=== PATIENT | female | born 1950 | race Hispanic/Latino ===

== ENCOUNTER → 2017-07-16 | Outpatient (CLI) | payer OTHER, MEDICARE ==
[~2017-07-16] MED LIST: ASPI-1181 PO; BUSP15TA3 PO; CALC-1038 PO; CHOL200013 PO; DIPH25 PO; GABA-529 PO; LEVO100T12 PO; METO25 PO; TYL3 PO
== END | disposition home or self-care (01) ==
LOC: SHCH 15:28
PROVIDERS: ATTEND Internal Medicine Cardiovascular Disease
DX: I35.0 Nonrheumatic aortic (valve) stenosis (principal); Z95.2 Presence of prosthetic heart valve
CPT/HCPCS: 93306

== ENCOUNTER → 2017-11-16 | Outpatient (CLI) | payer OTHER, MEDICARE | END | disposition home or self-care (01) | LOC: RAH 12:35 | PROVIDERS: ATTEND Internal Medicine | DX: R51 Headache (principal); R42 Dizziness and giddiness | CPT/HCPCS: 70450 ==

== ENCOUNTER → 2018-01-11 | Outpatient (CLI) | payer OTHER, MEDICARE | END | disposition home or self-care (01) | LOC: RAH 09:28 | PROVIDERS: ATTEND Internal Medicine | DX: Z12.31 Encounter for screening mammogram for malignant neoplasm of breast (principal) | CPT/HCPCS: 77067 ==

== ENCOUNTER → 2018-02-04 | Outpatient (CLI) | payer OTHER, MEDICARE | END | disposition home or self-care (01) | LOC: RAH 11:51 | PROVIDERS: ATTEND Internal Medicine | DX: E04.1 Nontoxic single thyroid nodule (principal); F41.9 Anxiety disorder, unspecified | CPT/HCPCS: 76536; 93880 ==

== ENCOUNTER → 2018-04-10 | Outpatient (CLI) | payer OTHER, MEDICARE | END | disposition home or self-care (01) | LOC: RAH 16:03 | PROVIDERS: ATTEND Internal Medicine | DX: M25.552 Pain in left hip (principal); M25.562 Pain in left knee | CPT/HCPCS: 73502; 73562 ==

== ENCOUNTER → 2018-05-15 | Outpatient (CLI) | payer OTHER, MEDICARE | END | disposition home or self-care (01) | LOC: RAH 13:19 | PROVIDERS: ATTEND Internal Medicine | DX: R05 Cough (principal); M85.88 Other specified disorders of bone density and structure, other site | CPT/HCPCS: 71046 ==

== ENCOUNTER → 2018-06-11 | Outpatient (CLI) | payer OTHER, MEDICARE | END | disposition home or self-care (01) | LOC: RAH 10:24 | PROVIDERS: ATTEND Internal Medicine | DX: N60.01 Solitary cyst of right breast (principal); N64.4 Mastodynia | CPT/HCPCS: 76641 ==

== ENCOUNTER → 2019-01-13 | Outpatient (CLI) | payer OTHER, MEDICARE | END | disposition home or self-care (01) | LOC: RAH 09:40 | PROVIDERS: ATTEND Internal Medicine | DX: Z12.31 Encounter for screening mammogram for malignant neoplasm of breast (principal) | CPT/HCPCS: 77067 ==

== ENCOUNTER → 2019-01-31 | Outpatient (CLI) | payer OTHER, MEDICARE | END | disposition home or self-care (01) | LOC: RAH 10:51 | PROVIDERS: ATTEND Internal Medicine | DX: E04.9 Nontoxic goiter, unspecified (principal) | CPT/HCPCS: 76536 ==

== ENCOUNTER → 2019-02-05 | Outpatient (CLI) | payer OTHER, MEDICARE | END | disposition home or self-care (01) | LOC: SHCH 10:32 | PROVIDERS: ATTEND Internal Medicine Cardiovascular Disease | DX: I08.0 Rheumatic disorders of both mitral and aortic valves (principal); I65.23 Occlusion and stenosis of bilateral carotid arteries | CPT/HCPCS: 93306; 93880 ==

== ENCOUNTER → 2020-03-11 | Outpatient (CLI) | payer OTHER, MEDICARE ==
[~2020-03-11] MED LIST changes: -ASPI-1181 PO; +ASPI-1443 PO
== END | disposition home or self-care (01) ==
LOC: SHCH 09:35
PROVIDERS: ATTEND Internal Medicine Cardiovascular Disease
DX: I65.23 Occlusion and stenosis of bilateral carotid arteries (principal)
CPT/HCPCS: 93306; 93356; 93880

== ENCOUNTER → 2020-05-10 | Outpatient (CLI) | payer OTHER, MEDICARE | END | disposition home or self-care (01) | LOC: RAH 14:25 | PROVIDERS: ATTEND Internal Medicine | DX: M54.6 Pain in thoracic spine (principal) | CPT/HCPCS: 71046; 72070; 72100 ==

== ENCOUNTER → 2021-05-03 | Outpatient (CLI) | payer OTHER, MEDICARE | END | disposition home or self-care (01) | LOC: SHCH 07:35 | PROVIDERS: ATTEND Internal Medicine Cardiovascular Disease | DX: I71.4 Abdominal aortic aneurysm, without rupture (principal) | CPT/HCPCS: 93978 ==

== ENCOUNTER → 2021-10-10 | Outpatient (CLI) | payer OTHER, MEDICARE | END | disposition home or self-care (01) | LOC: RAH 14:55 | PROVIDERS: ATTEND Internal Medicine | DX: M17.12 Unilateral primary osteoarthritis, left knee (principal); M25.552 Pain in left hip; G57.02 Lesion of sciatic nerve, left lower limb; M54.2 Cervicalgia; M25.562 Pain in left knee; M16.12 Unilateral primary osteoarthritis, left hip | CPT/HCPCS: 73502; 73560 ==

== ENCOUNTER → 2021-12-19 | Outpatient (CLI) | payer OTHER, MEDICARE | END | disposition home or self-care (01) | LOC: RAH 14:56 | PROVIDERS: ATTEND Internal Medicine | DX: Z12.31 Encounter for screening mammogram for malignant neoplasm of breast (principal) | CPT/HCPCS: 77067 ==

== ENCOUNTER → 2021-12-22 | Outpatient (CLI) | payer OTHER, MEDICARE ==
[2021-12-22 12:26] LABS: BASOPHILS % (AUTO) 0.5 % (0.0-5.0); EOSINOPHILS % (AUTO) 1.7 % (0.0-8.0); HEMATOCRIT 40.7 % (36-48); LYMPHOCYTES % (AUTO) 35.4 % (21.0-51.0); MEAN CORPUSCULAR HGB CONC 32.7 g/dL (32.0-36.0); MEAN CORPUSCULAR VOLUME 91.7 fL (79-99); MONOCYTES % (AUTO) 7.8 % (3.0-13.0); NEUTROPHILS % (AUTO) 54.3 % (40.0-77.0); PLATELET COUNT (AUTO) 189 K/uL (130-400); RED BLOOD CELL COUNT(AUTO) 4.44 MIL/uL (4.00-5.50); RED CELL DISTRIBUTION WIDTH 13.2 % (11.0-15.5); WHITE BLOOD COUNT (AUTO) 6.1 K/uL (4.8-10.8)
[2021-12-22 12:39] LABS: CREATININE 0.9 mg/dL (0.5-1.5); POTASSIUM 4.3 mmol/L (3.5-5.1)
[2021-12-22 12:51] LABS: INR 0.93 (0.85-1.15); PROTHROMBIN TIME 9.7 SEC (9.6-11.6)
[2021-12-22 12:52] LABS: PARTIAL THROMBOPLASTIN TIME 24.6 SEC (26.3-35.5)
== END | disposition home or self-care (01) ==
LOC: LAB 08:50
PROVIDERS: ATTEND Internal Medicine Cardiovascular Disease
DX: I10 Essential (primary) hypertension (principal); I25.10 Atherosclerotic heart disease of native coronary artery without angina pectoris; I65.23 Occlusion and stenosis of bilateral carotid arteries; I87.2 Venous insufficiency (chronic) (peripheral); I87.1 Compression of vein
CPT/HCPCS: 36415; 80048; 85025; 85610; 85730

== ENCOUNTER → 2022-02-10 | Outpatient (CLI) | payer OTHER, MEDICARE | END | disposition home or self-care (01) | LOC: RAH 12:59 | PROVIDERS: ATTEND Internal Medicine | DX: R59.0 Localized enlarged lymph nodes (principal); M54.2 Cervicalgia | CPT/HCPCS: 74018; 76536 ==

== ENCOUNTER 2022-03-20 14:42 | Observation (INO) | payer OTHER, MEDICARE ==
[~2022-03-20] VITALS: Ht 157.5 cm; Wt 77.6 kg
[~2022-03-20 14:42] MED LIST changes: +DIPH-1242 PO; -DIPH25 PO
[2022-03-20 15:25] LABS: HEMATOCRIT 37.5 % (36-48); MEAN CORPUSCULAR HEMOGLOBIN 29.8 pg (27.0-33.0); MEAN CORPUSCULAR HGB CONC 32.5 g/dL (32.0-36.0); MEAN CORPUSCULAR VOLUME 91.5 fL (79-99); PLATELET COUNT (AUTO) 164 K/uL (130-400); RED CELL DISTRIBUTION WIDTH 13.2 % (11.0-15.5); WHITE BLOOD COUNT (AUTO) 6.2 K/uL (4.8-10.8)
[2022-03-20 15:28] LABS: BASOPHILS % (AUTO) 0.5 % (0.0-5.0); EOSINOPHILS % (AUTO) 1.1 % (0.0-8.0); LYMPHOCYTES % (AUTO) 28.1 % (21.0-51.0); NEUTROPHILS % (AUTO) 64.1 % (40.0-77.0)
[2022-03-20 15:37] LABS: CREATININE 0.8 mg/dL (0.5-1.5); POTASSIUM 3.6 mmol/L (3.5-5.1)
[2022-03-20 15:39] LABS: INR 0.93 (0.85-1.15); PROTHROMBIN TIME 10.2 SEC (9.6-11.6)
[2022-03-20 15:40] LABS: PARTIAL THROMBOPLASTIN TIME 25.1 SEC (26.3-35.5)
[2022-03-20 15:46] LABS: ALBUMIN 3.8 g/dL (3.5-5.0); TOTAL PROTEIN, SERUM 6.9 g/dL (6.0-8.3)
[2022-03-20 19:17] LABS: APPEARANCE,URINE CLEAR (CLEAR); BILIRUBIN,URINE NEGATIVE (NEGATIVE); COLOR,URINE COLORLESS (YELLOW); GLUCOSE, URINE (UA) NEGATIVE (NEGATIVE); KETONES,URINE NEGATIVE (NEGATIVE); LEUKOCYTE ESTERASE ,URINE 75 Leu/uL (NEGATIVE); NITRATE,URINE NEGATIVE (NEGATIVE); OCCULT BLOOD,URINE NEGATIVE (NEGATIVE); PROTEIN,URINE NEGATIVE (NEGATIVE); UROBILINOGEN,URINE 0.2 mg/dL (0.2-1.0)
[2022-03-20 19:20] LABS: MUCUS,URINE RARE LPF (None Seen); RBC,URINE 0-1 /HPF (0-1); SQUAMOUS EPITHELIAL CELL,UR RARE /HPF (0-2)
[2022-03-20] MEDS ORDERED: DOCU100C33 PO (19:53)
[2022-03-20] MEDS ORDERED: MECL-160 PO (19:53)
[2022-03-20] MEDS ORDERED: CETI10TA57 PO (19:53)
[2022-03-20] MEDS ORDERED: ASPI-1197 PO (19:53)
[2022-03-20] MEDS ORDERED: ACET500C4 PO (19:53)
[2022-03-20] MEDS ORDERED: ROSU5TAB12 PO (19:53)
[2022-03-20] MEDS ORDERED: LOSA50TA64 PO (19:53)
[2022-03-20] MEDS ORDERED: LACTATED RINGERS 1000ML 1,000 ML IV SCH (20:30)
[2022-03-20] MEDS ORDERED: ONDANSETRON 4MG INJ IV PRN (20:30)
[2022-03-20] MEDS ORDERED: MORPHINE 2 MG SYG IV PRN (20:30)
[2022-03-20] MEDS ORDERED: MORPHINE 4 MG SYG IV PRN (20:30)
[2022-03-20] MEDS ORDERED: ACETAMINOPHEN 325 MG TAB PO PRN ×2 (20:30)
[2022-03-20] MEDS ORDERED: ATORVASTATIN 40 MG TABLET PO SCH (21:00)
[2022-03-20] MEDS ORDERED: LEVOFLOXACIN 500 MG/D5W 100 ML 100 ML IV SCH (22:30)
[2022-03-21] MEDS ORDERED: MECLIZINE HCL 25 MG TABLET ONE (05:33)
[2022-03-21] MEDS ORDERED: MECLIZINE HCL 25 MG TABLET PO ONE (06:00)
[2022-03-21 07:34] LABS: BASOPHILS % (AUTO) 0.6 % (0.0-5.0); EOSINOPHILS % (AUTO) 1.5 % (0.0-8.0); LYMPHOCYTES % (AUTO) 34.4 % (21.0-51.0); MEAN CORPUSCULAR HEMOGLOBIN 30.1 pg (27.0-33.0); MEAN CORPUSCULAR HGB CONC 32.3 g/dL (32.0-36.0); MEAN CORPUSCULAR VOLUME 93.3 fL (79-99); MONOCYTES % (AUTO) 5.4 % (3.0-13.0); NEUTROPHILS % (AUTO) 57.9 % (40.0-77.0); PLATELET COUNT (AUTO) 145 K/uL (130-400); RED BLOOD CELL COUNT(AUTO) 4.18 MIL/uL (4.00-5.50); RED CELL DISTRIBUTION WIDTH 13.1 % (11.0-15.5); WHITE BLOOD COUNT (AUTO) 5.4 K/uL (4.8-10.8)
[2022-03-21 08:01] LABS: CREATININE 0.8 mg/dL (0.5-1.5); MAGNESIUM 1.8 mg/dL (1.80-2.40); PHOSPHORUS 3.4 mg/dL (2.5-4.9); POTASSIUM 3.4 mmol/L (3.5-5.1); THYROID STIMULATING HORMONE 1.93 uIU/mL (0.36-3.74)
[2022-03-21] MEDS ORDERED: CLOPIDOGREL 75MG TAB PO SCH (09:00)
[2022-03-21] MEDS ORDERED: ENOXAPARIN SODIUM 40 MG/0.4 ML SYRINGE SQ SCH (09:00)
[2022-03-21] MEDS ORDERED: ASPIRIN 81MG CHEW TAB PO SCH (09:00)
[2022-03-21] MEDS ORDERED: FAMOTIDINE 20MG VIAL IV SCH (09:00)
[2022-03-21] MEDS ORDERED: ATOR40TA69 PO (11:15)
[2022-03-21] MEDS ORDERED: CLOP-31 PO (11:15)
[2022-03-21] MEDS ORDERED: FAMO20TA8 PO (11:15)
[2022-03-21 11:25] LABS: HEMOGLOBIN A1C 5.7 % (4.0-6.0)
[2022-03-21] MEDS ORDERED: ACETAMINOPHEN 500 MG TABLET PO PRN (11:30)
[2022-03-21 12:19] VITALS: BP 124/69
[2022-03-21] MEDS ORDERED: GABAPENTIN 100 MG CAPSULE PO SCH (14:00)
[2022-03-21] MEDS ORDERED: DOCUSATE SODIUM 100 MG CAP PO SCH (21:00)
[2022-03-22] MEDS ORDERED: LEVOTHYROXINE 100 MCG TABLET PO SCH (06:30)
[2022-03-22] MEDS ORDERED: CETIRIZINE HCL 5 MG TABLET PO SCH (09:00)
[2022-03-22] MEDS ORDERED: LOSARTAN 50 MG TABLET PO SCH (09:00)
== END 2022-03-21 12:18 | disposition home or self-care (01) ==
LOC: EDH 14:42 → EDHIP 20:10 → INTOOBSV 20:10
PROVIDERS: ADMIT Internal Medicine; ATTEND Internal Medicine
DX: G45.9 Transient cerebral ischemic attack, unspecified (principal); I10 Essential (primary) hypertension; E78.00 Pure hypercholesterolemia, unspecified; I63.9 Cerebral infarction, unspecified; E03.9 Hypothyroidism, unspecified; G51.0 Bell's palsy; G89.29 Other chronic pain; R29.700 NIHSS score 0; N39.0 Urinary tract infection, site not specified; Z79.82 Long term (current) use of aspirin; Z90.710 Acquired absence of both cervix and uterus; Z90.49 Acquired absence of other specified parts of digestive tract; Z79.02 Long term (current) use of antithrombotics/antiplatelets; Z79.899 Other long term (current) drug therapy; Z95.2 Presence of prosthetic heart valve; Z51.5 Encounter for palliative care; Z98.890 Other specified postprocedural states
CPT/HCPCS: 96361 ×3; 99285; 84484; 80053; 85025 ×2; 85610; 85730; 87088; 81001; 36415 ×2; 70551; 70544; 70547; 96365; 93005; 96372; 96375; 83036; 84443; 83735; 84100; 80061; 80048; 97161; J7120; J1956; G0378 ×2; J3490; J1650

== ENCOUNTER 2022-03-27 21:52 | Emergency (ER) | payer OTHER, MEDICARE ==
[~2022-03-27] VITALS: Ht 170.2 cm; Wt 78.9 kg
[~2022-03-27 21:52] MED LIST changes: +ACET500C4 PO; +ASPI-1197 PO; -ASPI-1443 PO; +ATOR40TA69 PO; -BUSP15TA3 PO; -CALC-1038 PO; +CETI10TA57 PO; -CHOL200013 PO; +CLOP-31 PO; -DIPH-1242 PO; +DOCU100C33 PO; +FAMO20TA8 PO; +LOSA50TA64 PO; +MECL-160 PO; -METO25 PO; +ROSU5TAB12 PO; -TYL3 PO
[2022-03-27 22:25] VITALS: BP 162/67
[2022-03-27] MEDS ORDERED: IBUP-1493 PO (23:00)
[2022-03-27] MEDS ORDERED: LEVO100 PO (23:00)
[2022-03-27] MEDS ORDERED: CYCL-309 PO (23:00)
== END 2022-03-27 23:08 | disposition home or self-care (01) ==
LOC: EDH 21:52
DX: M54.2 Cervicalgia (principal); Z91.040 Latex allergy status; I10 Essential (primary) hypertension; E78.00 Pure hypercholesterolemia, unspecified; Z79.82 Long term (current) use of aspirin; Z79.899 Other long term (current) drug therapy; Z88.8 Allergy status to other drugs, medicaments and biological substances; Z90.49 Acquired absence of other specified parts of digestive tract; Z90.710 Acquired absence of both cervix and uterus; Z90.89 Acquired absence of other organs

== ENCOUNTER → 2022-06-07 | Outpatient (CLI) | payer OTHER, MEDICARE ==
[~2022-06-07] MED LIST changes: +CYCL-309 PO; +IBUP-1493 PO; +LEVO100 PO
== END | disposition home or self-care (01) ==
LOC: SHCH 10:34
PROVIDERS: ATTEND Internal Medicine Cardiovascular Disease
DX: I08.0 Rheumatic disorders of both mitral and aortic valves (principal); I11.9 Hypertensive heart disease without heart failure; E78.5 Hyperlipidemia, unspecified; Z95.2 Presence of prosthetic heart valve
CPT/HCPCS: 93306

== ENCOUNTER → 2022-07-19 | Outpatient (CLI) | payer OTHER, MEDICARE | END | disposition home or self-care (01) | LOC: SHCH 15:11 | PROVIDERS: ATTEND Internal Medicine Cardiovascular Disease | DX: I65.23 Occlusion and stenosis of bilateral carotid arteries (principal) | CPT/HCPCS: 93880 ==

== ENCOUNTER → 2022-12-20 | Outpatient (CLI) | payer OTHER, MEDICARE ==
[~2022-12-20] MED LIST changes: -MECL-160 PO; +MECL-302 PO
== END | disposition home or self-care (01) ==
LOC: RAH 08:51
PROVIDERS: ATTEND Internal Medicine
DX: Z12.31 Encounter for screening mammogram for malignant neoplasm of breast (principal)
CPT/HCPCS: 77067

== ENCOUNTER → 2023-05-04 | Outpatient (CLI) | payer MEDICARE ==
[~2023-05-04] MED LIST changes: +HYDR50CA50 PO; +MECL-160 PO; -MECL-302 PO
[2023-05-07 12:22] LABS: BASOPHILS # (AUTO) 0.04 K/uL (0.00-0.20); BASOPHILS % (AUTO) 0.7 % (0.0-5.0); EOSINOPHILS # (AUTO) 0.06 K/uL (0.00-0.70); HEMATOCRIT 39.4 % (36-48); IMMATURE GRANULOCYTE ABSOLUTE 0.01 K/uL (0-1); LYMPHOCYTES # (AUTO) 2.8 K/uL (1.0-4.8); LYMPHOCYTES % (AUTO) 45.2 % (21.0-51.0); MEAN CORPUSCULAR HEMOGLOBIN 30.8 pg (27.0-33.0); MEAN CORPUSCULAR HGB CONC 32.5 g/dL (32.0-36.0); MEAN CORPUSCULAR VOLUME 94.9 fL (79-99); MONOCYTES # (AUTO) 0.4 K/uL (0.1-1.0); MONOCYTES % (AUTO) 7.2 % (3.0-13.0); NEUTROPHILS # (AUTO) 2.8 K/uL (1.8-7.7); NEUTROPHILS % (AUTO) 45.7 % (40.0-77.0); PLATELET COUNT (AUTO) 165 K/uL (130-400); RED BLOOD CELL COUNT(AUTO) 4.15 MIL/uL (4.00-5.50); RED CELL DISTRIBUTION WIDTH 13.3 % (11.0-15.5); WHITE BLOOD COUNT (AUTO) 6.1 K/uL (4.8-10.8)
[2023-05-07 12:26] LABS: APPEARANCE,URINE CLEAR (CLEAR); BILIRUBIN,URINE NEGATIVE (NEGATIVE); COLOR,URINE LIGHT-YELLOW (YELLOW); GLUCOSE, URINE (UA) NEGATIVE (NEGATIVE); KETONES,URINE NEGATIVE (NEGATIVE); LEUKOCYTE ESTERASE ,URINE NEGATIVE Leu/uL (NEGATIVE); NITRATE,URINE NEGATIVE (NEGATIVE); OCCULT BLOOD,URINE SMALL (NEGATIVE); PROTEIN,URINE NEGATIVE (NEGATIVE); UROBILINOGEN,URINE 0.2 mg/dL (0.2-1.0)
[2023-05-07 12:27] LABS: ADD UA MICROSCOPIC YES
[2023-05-07 12:30] LABS: CALCIUM OXALATE CRYSTALS,UR FEW /LPF (None Seen); MUCUS,URINE RARE LPF (None Seen); SQUAMOUS EPITHELIAL CELL,UR RARE /HPF (0-2); TRANSITIONAL EPI CELLS,URINE RARE /HPF (None Seen); UNCLASSIFIED CRYSTAL 3 /HPF (None Seen)
[2023-05-07 12:32] LABS: HEMOGLOBIN A1C 5.8 % (4.0-6.0)
[2023-05-07 12:40] LABS: ALBUMIN 3.7 g/dL (3.5-5.0); BILIRUBIN,TOTAL 1.2 mg/dL (0.2-1.0); CREATININE 0.8 mg/dL (0.5-1.5); MAGNESIUM 2.1 mg/dL (1.80-2.40); POTASSIUM 4.1 mmol/L (3.5-5.1); TOTAL PROTEIN, SERUM 6.8 g/dL (6.0-8.3)
== END | disposition home or self-care (01) ==
LOC: LAB 14:11
PROVIDERS: ATTEND Physician Assistant
DX: I35.0 Nonrheumatic aortic (valve) stenosis (principal); I87.2 Venous insufficiency (chronic) (peripheral); Z79.899 Other long term (current) drug therapy
CPT/HCPCS: 36415; 80053; 80061; 81001; 82652; 83036; 83735; 83880; 84484; 85025

== ENCOUNTER → 2023-06-12 | Outpatient (CLI) | payer MEDICARE ==
[~2023-06-12] MED LIST changes: -MECL-160 PO; +MECL-302 PO
== END | disposition home or self-care (01) ==
LOC: SHCH 14:38
PROVIDERS: ATTEND Internal Medicine Cardiovascular Disease
DX: I11.9 Hypertensive heart disease without heart failure (principal); I35.0 Nonrheumatic aortic (valve) stenosis; R04.2 Hemoptysis; Z95.2 Presence of prosthetic heart valve
CPT/HCPCS: 93306

== ENCOUNTER → 2023-07-17 | Outpatient (CLI) | payer MEDICARE ==
[~2023-07-17] MED LIST changes: -ROSU5TAB12 PO; +ROSU5TAB43 PO
== END | disposition home or self-care (01) ==
LOC: SHCH 14:39
PROVIDERS: ATTEND Internal Medicine Cardiovascular Disease
DX: I87.2 Venous insufficiency (chronic) (peripheral) (principal); I87.1 Compression of vein
CPT/HCPCS: 93970

== ENCOUNTER → 2023-08-10 | Outpatient (CLI) | payer MEDICARE ==
[2023-08-10 12:55] LABS: ALBUMIN 3.7 g/dL (3.5-5.0); BILIRUBIN,TOTAL 0.8 mg/dL (0.2-1.0); CREATININE 0.8 mg/dL (0.5-1.0); POTASSIUM 4.3 mmol/L (3.5-5.1)
== END | disposition home or self-care (01) ==
LOC: LAB 08:52
PROVIDERS: ATTEND Physician Assistant
DX: I10 Essential (primary) hypertension (principal)
CPT/HCPCS: 36415; 80053; 80061

== ENCOUNTER → 2023-10-22 | Outpatient (CLI) | payer MEDICARE ==
[2023-10-22 12:55] LABS: ALBUMIN 3.7 g/dL (3.5-5.0); BILIRUBIN,TOTAL 0.6 mg/dL (0.2-1.0); CREATININE 0.8 mg/dL (0.5-1.0); POTASSIUM 4.1 mmol/L (3.5-5.1); TOTAL PROTEIN, SERUM 6.8 g/dL (6.0-8.3)
== END | disposition home or self-care (01) ==
LOC: LAB 10:25
PROVIDERS: ATTEND Physician Assistant
DX: I10 Essential (primary) hypertension (principal)
CPT/HCPCS: 36415; 80053; 80061

== ENCOUNTER → 2024-01-03 | Outpatient (CLI) | payer MEDICARE, MEDICAID ==
[~2024-01-03] MED LIST changes: -ROSU5TAB43 PO; +ROSU5TAB51 PO
--- NOTE | 2024-01-03 10:50 | HMCIMG ---
MAMMO SCREENING BILATERAL HISTORY: Screening mammogram. COMPARISON: 12/20/2022 TECHNIQUE: Bilateral screening mammogram with CAD was performed with craniocaudal and mediolateral oblique projections. FINDINGS: The breasts are heterogeneous dense, which may obscure small masses. There is no evidence of a dominant mass, or suspicious microcalcification. There is no evidence of nipple retraction or skin thickening. IMPRESSION: 1. Stable mammogram. Patient was entered into a reminder system with a target due date for their next mammogram. BI-RADS: CATEGORY 2: BENIGN FINDINGS Recommend monthly self breast exam as well as annual clinical examination. A negative x-ray should not delay biopsy if a dominant or clinically suspicious mass is present, since 8-10% of cancers are not identified by mammography. Dense breasts particularly, may obscure an underlying neoplasm. Some of these may be detected clinically and therefore, clinical examination is an essential part of breast evaluation.
== END | disposition home or self-care (01) ==
LOC: RAH 09:04
PROVIDERS: ATTEND Family Medicine
DX: Z12.31 Encounter for screening mammogram for malignant neoplasm of breast (principal); R92.30 Dense breasts, unspecified
CPT/HCPCS: 77067

== ENCOUNTER → 2024-04-25 | Outpatient (CLI) | payer MEDICARE, MEDICAID ==
--- NOTE | 2024-04-28 13:35 | HMCSR ---
APPROVED REPORT EXAM: Two-dimensional and M-mode echocardiogram with Doppler and color Doppler. INDICATION ICD: R06.00 Dyspnea 2D Dimensions RVDd3.7 cmLVEF(%)62.0 (>50%)LVED Vol(simp.)97.0 mL IVSd1.1 (0.7-1.1cm)FS(%)33 %LVES Vol(simp.)36.0 mL LVDd4.6 (3.8-5.6cm)IVC diam2.1 cmLVEF(%, simp.)63 % PWd1.2 (0.7-1.1cm)LA ESV INDEX (BP)34.31 mL/m2 LVDs3.1 (2.5-4.0cm) Aortic Valve AoV Vmax2.8 m/Romina Peak GR32.4 mmHgLVOT Vmax1.4 m/s AoV VTI0.7 mAo Mean GR18.2 mmHgLVOT VTI0.32 m Mitral Valve MV E Bmuo907.5 cm/sDECEL Vbtd451 msMR NPG982 cm2 MV A Vmax96.5 cm/sP 1/2 T48 ms E/A ratio1.3MVA (PHT)4.6 cm2 MR Max PG180 mmHgMR Mean PG122 mmHg TDI E/E' Vnetur07.0E/E' Sk[place]kom03.0 Pulmonary Valve PV Vmax1.1 m/sPV VTI0.28 mPV Mean GR3 mmHg PV Peak GR4.7 mmHg Tricuspid Valve TR Vmax3.0 m/sRAP (EST) 8 wkGhZJGK50.9 mmHg TR Peak GR36.9 mmHg Left Ventricle The left ventricle structure and function is normal. There is mild concentric left ventricular hypert rophy. LVEF is 60-65%. Grade 2 diastolic dysfunction. Right Ventricle The right ventricle is normal size. Right ventricular systolic function is mildly to moderately reduc ed. Atria The left atrium is mildly dilated. The right atrium size is normal. Aortic Valve Bioprosthetic aortic valve is present. Trace aortic regurgitation. Maximum pressure gradient of 32.4 mmHg and mean pressure gradient of 18.2 mmHg. Mitral Valve Mitral valve leaflets are mildly sclerotic but open well. Mitral regurgitation is moderate to severe. There is no mitral valve stenosis. Tricuspid Valve The tricuspid valve leaflets appear normal. There is mild to moderate tricuspid regurgitation. Right ventricular systolic pressure is estimated at 40-50 mmHg. Pulmonic Valve Pulmonic valve is not well visualized. There is trace pulmonic valvular regurgitation. Great Vessels The aortic root is not well visualized but is probably normal size. IVC is dilated and collapses >50% with inspiration. Pericardium No pericardial effusion.
== END | disposition home or self-care (01) ==
LOC: SHCH 12:44
PROVIDERS: ATTEND Internal Medicine Cardiovascular Disease
DX: I08.1 Rheumatic disorders of both mitral and tricuspid valves (principal); R06.00 Dyspnea, unspecified; Z95.3 Presence of xenogenic heart valve
CPT/HCPCS: 93306

== ENCOUNTER → 2024-05-19 | Outpatient (CLI) | payer MEDICARE, MEDICAID ==
--- NOTE | 2024-05-20 08:30 | HMCIMG ---
PROCEDURE: MAMMO DX BILATERAL, US BREAST BILATERAL HISTORY: Breast pain COMPARISON: 01/03/2024 TECHNIQUE: Bilateral digital diagnostic mammogram with CAD was performed. No additional views were obtained. Bilateral breast ultrasound study was performed. FINDINGS: The breasts are heterogeneously dense, which may obscure small masses. There is no evidence of a dominant mass, or suspicious microcalcification. There is no evidence of nipple retraction or skin thickening. Bilateral breast ultrasound study shows bilateral breast cysts with the largest at 8:00 of right breast measuring 5 x 4 x 6 mm and 6:00 of left breast measuring 5 x 4 x 3 mm. There are bilateral axillary lymph nodes with largest on the right measuring 16 mm and on the left measuring 12 mm. IMPRESSION: 1. Stable mammogram. Bilateral small breast cysts. BI-RADS: CATEGORY 2: BENIGN FINDINGS Recommend monthly self breast exam as well as annual clinical examination. A negative x-ray should not delay biopsy if a dominant or clinically suspicious mass is present, since 8-10% of cancers are not identified by mammography. Dense breasts particularly, may obscure an underlying neoplasm. Some of these may be detected clinically and therefore, clinical examination is an essential part of breast evaluation.
== END | disposition home or self-care (01) ==
LOC: RAH 13:23
PROVIDERS: ATTEND Family Medicine
DX: N60.01 Solitary cyst of right breast (principal); N60.02 Solitary cyst of left breast; N64.4 Mastodynia; R92.333 Mammographic heterogeneous density, bilateral breasts
CPT/HCPCS: 77066

== ENCOUNTER 2024-07-02 18:26 | Emergency (ER) | payer MEDICARE, MEDICAID ==
[~2024-07-02] VITALS: Ht 167.6 cm; Wt 80.7 kg
[2024-07-02 18:27] VITALS: TEMP 98
[2024-07-02 19:38] LABS: BASOPHILS # (AUTO) 0.03 K/uL (0.00-0.20); BASOPHILS % (AUTO) 0.5 % (0.0-5.0); EOSINOPHILS # (AUTO) 0.07 K/uL (0.00-0.70); EOSINOPHILS % (AUTO) 1.1 % (0.0-8.0); HEMATOCRIT 39.9 % (36-48); IMMATURE GRANULOCYTE ABSOLUTE 0.01 K/uL (0-1); LYMPHOCYTES # (AUTO) 2.5 K/uL (1.0-4.8); LYMPHOCYTES % (AUTO) 38.4 % (21.0-51.0); MEAN CORPUSCULAR HEMOGLOBIN 31.2 pg (27.0-33.0); MEAN CORPUSCULAR HGB CONC 32.8 g/dL (32.0-36.0); MONOCYTES # (AUTO) 0.5 K/uL (0.1-1.0); MONOCYTES % (AUTO) 7.2 % (3.0-13.0); NEUTROPHILS # (AUTO) 3.5 K/uL (1.8-7.7); NEUTROPHILS % (AUTO) 52.6 % (40.0-77.0); PLATELET COUNT (AUTO) 174 K/uL (130-400); RED CELL DISTRIBUTION WIDTH 13.5 % (11.0-15.5); WHITE BLOOD COUNT (AUTO) 6.6 K/uL (4.8-10.8)
[2024-07-02 19:39] LABS: APPEARANCE,URINE CLEAR (CLEAR); BILIRUBIN,URINE NEGATIVE (NEGATIVE); COLOR,URINE COLORLESS (YELLOW); GLUCOSE, URINE (UA) NEGATIVE (NEGATIVE); KETONES,URINE NEGATIVE (NEGATIVE); LEUKOCYTE ESTERASE ,URINE NEGATIVE Leu/uL (NEGATIVE); NITRATE,URINE NEGATIVE (NEGATIVE); OCCULT BLOOD,URINE NEGATIVE (NEGATIVE); PROTEIN,URINE NEGATIVE (NEGATIVE); UROBILINOGEN,URINE 0.2 mg/dL (0.2-1.0)
[2024-07-02 19:40] LABS: ADD UA MICROSCOPIC NO
[2024-07-02 19:45] LABS: POTASSIUM 3.4 mmol/L (3.5-5.1)
[2024-07-02 20:03] LABS: B-TYPE NATRIURETIC PEPTIDE 61 pg/mL (0-100)
[2024-07-02] MEDS: LACTATED RINGERS 1000ML IV STA (20:15)
[2024-07-02] MEDS: hydrALAZine 20MG/ML VIAL IV ONE (20:22)
--- NOTE | 2024-07-02 20:34 | EKG ---
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
[2024-07-02 20:53] VITALS: BP 150/59; PULSE 69; RESP 18; O2SAT 100
--- NOTE | 2024-07-02 21:19 | ERN ---
General Chief Complaint: Numbness Stated Complaint: NUMBNESS TO LEFT ARM Time Seen by MD: 18:58 Source: patient History of Present Illness Initial Comments Patient is a 73-year-old female who comes in with left head neck pain and left arm numbness she is concerned about a stroke being the cause of her symptoms or problem with her heart. She is also experiencing palpitations. Timing/Duration: 1-3 hours Severity: mild Allergies: Coded Allergies: Penicillins (Unverified Allergy, Unknown, 02/02/17) iodine (Unverified Allergy, Unknown, 03/20/22) prednisone (Unverified Allergy, Unknown, 05/08/23) shellfish derived (Unverified Allergy, Unknown, HIVES, 02/07/17) States she gets rash/hives. Home Meds Active Scripts Hydroxyzine Pamoate (Hydroxyzine Pamoate) 50 Mg Capsule, 50 MG PO QIDP PRN for ANXIETY/AGITATION, #40 CAP 2 Refills Prov:BRADEN MASON Sr., MD 05/09/23 Ibuprofen (Motrin/Advil) 800 Mg Tab, 800 MG PO TID, #30 TAB Prov:LINDA LUX MD 03/27/22 Cyclobenzaprine HCl (Cyclobenzaprine HCl) 10 Mg Tablet, 10 MG PO TID, #60 TAB Prov:LINDA LUX MD 03/27/22 Famotidine (Famotidine) 20 Mg Tablet, 20 MG PO BID, #60 TAB 0 Refills Prov:ELIN RIOSNP 03/21/22 Clopidogrel Bisulfate (Plavix) 75 Mg Tablet, 75 MG PO DAILY, #30 TAB 0 Refills Prov:ELIN RIOSPCNP 03/21/22 Atorvastatin Calcium (LIPITOR) 40 Mg Tablet, 40 MG PO HS, #30 TAB 0 Refills Prov:ELIN RIOSNP 03/21/22 Reported Medications Levothyroxine Sodium (Levothroid/Synthroid) 100 Mcg Tab, 1 TAB PO DAILY 03/27/22 Aspirin (Aspirin) 81 Mg Tab.chew, 81 MG PO DAILY, TAB.CHEW 03/20/22 Cetirizine HCl (Cetirizine HCl) 10 Mg Tablet, 10 MG PO DAILY, TAB 03/20/22 Meclizine HCl (Meclizine HCl) 25 Mg Tablet, 25 MG PO AD, TAB 03/20/22 Docusate Sodium (Docusate Sodium) 100 Mg Capsule, 100 MG PO BID, CAP 03/20/22 Acetaminophen (Mapap) 500 Mg Capsule, 500 MG PO Q4HPRN PRN for PAIN LEVEL 4 TO 6, CAP 03/20/22 Losartan Potassium (Losartan Potassium) 50 Mg Tablet, 50 MG PO DAILY, TAB 03/20/22 Rosuvastatin Calcium (Rosuvastatin Calcium) 5 Mg Tablet, 5 MG PO HS, TAB 03/20/22 Gabapentin (Gabapentin) 100 Mg Capsule, 100 MG PO TID, CAP 02/02/17 Levothyroxine Sodium (Levothyroxine Sodium) 100 Mcg Tablet, 100 MCG PO DAILY, TAB 02/02/17 Past Medical History Past Medical History: Heart Disease, Hypertension, Other Medical History Other: HEART VALVE Past Surgical History: Hysterectomy, Tonsillectomy, Cholecystectomy, Other, BTL Surgical History Other: HEART VALVE Family History Family History: Negative Social History Social History: Negative, Lives with family ROS Dictation Review of systems are otherwise negative no GI symptoms no urinary tract symptoms no chest pain no shortness of breath no mental status changes. Physical Exam General Appearance: (+) mild distress Orientation: (+) alert, (+) oriented x 3 Head/Face Trauma: No Eye: bilateral eye normal inspection, bilateral eye PERRL, bilateral eye EOMI Ear, Nose, Throat: (+) hearing grossly normal, (+) normal ENT inspection Neck: (+) normal inspection, (+) supple, (+) full range of motion Respiratory: (+) chest non-tender, (+) lungs clear, (+) well ventilated Heart: (+) regular, (+) no gallop, (+) murmur Vascular: (+) no edema, (+) normal peripheral pulse Gastrointestinal: (+) soft, (+) non-tender, (+) no organomegaly, (+) bowel sound present Results Laboratory and Microbiology Lab and Micro Result Laboratory Tests Test 07/02/24 18:45 White Blood Count 6.6 K/uL (4.8-10.8) Red Blood Count 4.20 MIL/uL (4.00-5.50) Hemoglobin 13.1 g/dL (12.0-16.0) Hematocrit 39.9 % (36-48) Mean Corpuscular Volume 95.0 fL (79-99) Mean Corpuscular Hemoglobin 31.2 pg (27.0-33.0) Mean Corpuscular Hemoglobin Concent 32.8 g/dL (32.0-36.0) Red Cell Distribution Width 13.5 % (11.0-15.5) Platelet Count 174 K/uL (130-400) Mean Platelet Volume 11.0 fL (7.5-10.5) H Immature Granulocyte % (Auto) 0.2 % (0-1) Neutrophils (%) (Auto) 52.6 % (40.0-77.0) Lymphocytes (%) (Auto) 38.4 % (21.0-51.0) Monocytes (%) (Auto) 7.2 % (3.0-13.0) Eosinophils (%) (Auto) 1.1 % (0.0-8.0) Basophils (%) (Auto) 0.5 % (0.0-5.0) Neutrophils # (Auto) 3.5 K/uL (1.8-7.7) Lymphocytes # (Auto) 2.5 K/uL (1.0-4.8) Monocytes # (Auto) 0.5 K/uL (0.1-1.0) Eosinophils # (Auto) 0.07 K/uL (0.00-0.70) Basophils # (Auto) 0.03 K/uL (0.00-0.20) Absolute Immature Granulocyte (auto 0.01 K/uL (0-1) Nucleated Red Blood Cells 0.0 % (0.0-0.19) Urine Color COLORLESS (YELLOW) Urine Appearance CLEAR (CLEAR) Urine pH 6.0 (5.0-8.0) Urine Specific [place] 1.005 (1.001-1.031) Urine Protein NEGATIVE mg/dL (NEGATIVE) Urine Glucose (UA) NEGATIVE mg/dL (NEGATIVE) Urine Ketones NEGATIVE mg/dL (NEGATIVE) Urine Occult Blood NEGATIVE (NEGATIVE) Urine Nitrate NEGATIVE (NEGATIVE) Urine Bilirubin NEGATIVE mg/dL (NEGATIVE) Urine Urobilinogen 0.2 mg/dL (0.2-1.0) Urine Leukocyte Esterase NEGATIVE Gloria/uL Sodium Level 142 mmol/L (136-145) Potassium Level 3.4 mmol/L (3.5-5.1) L Chloride Level 106 mmol/L (101-111) Carbon Dioxide Level 30 mmol/L (21-32) Blood Urea Nitrogen 16 mg/dL (7-18) Creatinine 1.0 mg/dL (0.5-1.0) Glomerular Filtration Rate Calc 60 mL/min (>90) Random Glucose 117 mg/dL (70-105) H Total Calcium 9.1 mg/dL (8.5-10.1) Troponin I High Sensitivity 7 ng/L (4-50) B-Type Natriuretic Peptide 61 pg/mL (0-100) MDM Given patient's symptoms I will do a cardiac workup. Also get electrolytes to see if that is a cause for her symptoms. I do not feel the need to do a CT head. These are not typical stroke symptoms. Her past medical history is significant for cardiac disease. I will also give her some fluid and some medications to control her blood pressure. Patient feels much better with the IV fluids and blood pressure control. Her laboratory study is absolutely normal. I will discharge her home. ED Course Orders Procedure Category Date Status Time B-Type Natriuretic LAB 07/02/24 Complete Peptide 19:29 Basic Metabolic Panel LAB 07/02/24 Complete 19:29 Cbc With Differential LAB 07/02/24 Complete 19:29 Urinalysis Profile LAB 07/02/24 Complete 19:29 Lactated Ringers PHA 07/02/24 Complete 1000ml (Lactated 19:29 Hydralazine 20mg Inj PHA 07/02/24 Complete (Apresoline 20mg In 19:30 12 Lead Ekg Tracing- EKG 07/02/24 Complete Technical 19:29 Troponin I High LAB 07/02/24 Complete Sensitivity 19:29 Current Medications Medications (Trade) Dose Ordered Sig/Pascual Route PRN Reason Start Time Stop Time Status Last Admin Dose Admin Hydralazine HCl (APRESOLine 20MG INJ) 20 mg ONCE ONCE IV 07/02/24 19:30 07/02/24 19:33 DC 07/02/24 20:22 Lactated Ringer's (Lactated Ringers 1000ml) 1,000 ml BOLUS STAT IV 07/02/24 19:29 07/02/24 19:34 DC 07/02/24 20:15 Vital Signs Date Time Temp Pulse Resp B/P (MAP) Pulse Ox O2 Delivery O2 Flow Rate FiO2 07/02/24 20:53 69 18 150/59 100 Room Air* 0 21 07/02/24 20:20 66 18 150/58 100 Room Air* 0 21 07/02/24 19:01 66 18 164/64 96 Room Air* 0 21 07/02/24 18:27 98.1 71 16 196/69 97 Room Air DX & DISP Disposition: Discharge Departure Impression: Primary Impression: Neck pain Condition: Stable Additional Instructions: Please stay hydrated drink plenty of fluids follow-up with her primary care physician regarding your difficulty sleeping. You have no problems with her heart or your lungs or your chemistry values. Referrals: CHARANJIT MARCUM MD (PCP) MATT ZALDIVAR MD July 02, 2024 21:19
== END 2024-07-02 21:44 | disposition home or self-care (01) ==
LOC: EDH 18:26
DX: M54.2 Cervicalgia (principal); I10 Essential (primary) hypertension; Z79.02 Long term (current) use of antithrombotics/antiplatelets; Z79.1 Long term (current) use of non-steroidal anti-inflammatories (NSAID); Z79.82 Long term (current) use of aspirin; Z79.890 Hormone replacement therapy; Z79.899 Other long term (current) drug therapy; Z88.0 Allergy status to penicillin; Z88.8 Allergy status to other drugs, medicaments and biological substances; Z90.49 Acquired absence of other specified parts of digestive tract; Z90.710 Acquired absence of both cervix and uterus; Z91.041 Radiographic dye allergy status
CPT/HCPCS: 99284; 96374; 77080; 96361; 84484; 80048; 83880; 85025; 81003; 36415; 93005; J7120; J0360